=== PATIENT | female | born 1995 | race Caucasian/White ===

== ENCOUNTER 2018-07-08 06:25 | Emergency (ER) | payer SELFPAY ==
[~2018-07-08] VITALS: Ht 157.5 cm; Wt 68.0 kg
[2018-07-08] MEDS ORDERED: SILVER SULFADIAZINE 1% CREAM 25GM TOP ONE (08:00)
[2018-07-08] MEDS ORDERED: IBUPROFEN 800MG TABLET PO ONE (08:00)
[2018-07-08] MEDS ORDERED: TETANUS, DIPHTHERIA, PERTUSSIS VAC/PF 0.5ML (>7YR OLD) IM ONE (08:00)
[2018-07-08 08:43] VITALS: BP 111/58
== END 2018-07-08 08:58 | disposition home or self-care (01) ==
LOC: ER 07:28
DX: T24.211A Burn of second degree of right thigh, initial encounter (principal); T31.0 Burns involving less than 10% of body surface
CPT/HCPCS: 16020; 90471; 90715; 99283; 99284